=== PATIENT | female | born 1995 | race Caucasian/White ===

== ENCOUNTER → 2019-10-06 | Outpatient (REF) | payer MEDICAID, OTHER | LOC: M SFHCLERA 13:17 | PROVIDERS: ATTEND Nurse Practitioner Family | DX: N89.8 Other specified noninflammatory disorders of vagina (principal) ==

== ENCOUNTER → 2019-12-03 | Outpatient (REF) | payer OTHER ==
[~2019-12-03] MED LIST: KETO10TAB PO; MACR100C43 PO; ONDA4TAB6 PO
[2020-01-03 14:41] LABS: CHLAMYDIA DNA AMPLIFICATION POSITIVE (NEGATIVE); GC DNA AMPLIFICATION NEGATIVE (NEGATIVE)
== END ==
LOC: M LAB REF 13:10
PROVIDERS: ATTEND Physician Assistant
DX: N89.8 Other specified noninflammatory disorders of vagina (principal)

== ENCOUNTER 2019-12-11 14:12 | Emergency (ER) | payer MEDICAID, OTHER, SELFPAY ==
[~2019-12-11] VITALS: Ht 160 cm; Wt 61.5 kg
[2019-12-11] MEDS ORDERED: KETOROLAC 30 MG/ML 1ML VIAL IV ONE (16:00)
[2019-12-11 16:20] LABS: BASO % 0.1 % (0.0-1.0); EOS # 0.1 10^3/uL (0.0-0.5); EOS % 0.7 % (0.0-3.0); HEMATOCRIT 41.7 % (36.0-47.0); HEMOGLOBIN 14.6 g/dl (12.0-15.5); LYMPH # 1.6 10^3/uL (1.5-5.0); LYMPH % 18.7 % (24.0-44.0); MEAN CORPUSCULAR HEMOGLOBIN 32.5 pg (27.0-33.0); MEAN CORPUSCULAR VOLUME 92.9 fl (80.0-96.0); MONO # 0.7 10^3/uL (0.0-0.8); NEUTROPHILS # 6.2 10^3/uL (1.5-8.5); NEUTROPHILS % 72.2 % (36.0-66.0); PLATELET COUNT, AUTOMATED 291 10^3/uL (150-450); RED BLOOD COUNT 4.49 10^6/uL (4.00-5.40); WHITE BLOOD COUNT 8.6 10^3/uL (4.0-10.0)
[2019-12-11 16:43] LABS: BILIRUBIN,DIRECT 0.2 MG/DL (0.0-0.2); BILIRUBIN,TOTAL 0.8 MG/DL (0.2-1.0); TOTAL PROTEIN 7.4 GM/DL (6.4-8.2)
[2019-12-11] MEDS ORDERED: ONDANSETRON 4 MG ORAL DISINTEGRATING TAB PO ONE (19:00)
[2019-12-11] MEDS ORDERED: KETOROLAC TROMETHAMINE 10 MG TAB PO ONE (19:00)
[2019-12-11] MEDS ORDERED: MACR100C43 PO (19:04)
[2019-12-11] MEDS ORDERED: KETO10TAB PO (19:04)
[2019-12-11] MEDS ORDERED: ONDA4TAB6 PO (19:04)
[2019-12-11 19:15] VITALS: BP 104/68
[2019-12-11] MEDS ORDERED: NITROFURANTOIN (MACROBID) 100 MG CAP PO ONE (19:15)
--- NOTE | 2020-01-11 09:39 | REP ---
PELVIC SONOGRAPHY HISTORY: Right lower quadrant pain. History of ovarian cyst. FINDINGS: A retroverted normal size uterus is seen measuring 7.6 x 4.8 x 6.4 cm. Endometrial echo is 0.5 cm thick. No focal uterine mass is seen. There is a small quantity of hypoechoic fluid in the cul-de-sac visible on transvaginal images. Normal ovaries are seen. Right ovary measures 4.5 x 1.7 x 2.1 cm. Left ovary measures 3.2 x 1.8 x 4.1 cm. No ovarian mass or cyst is seen. Ovarian Doppler flow is present bilaterally. IMPRESSION: Small amount of hypoechoic fluid in the cul-de-sac. Otherwise, negative pelvic sonography. Retroverted uterus. MTDD
== END 2019-12-11 19:24 | disposition home or self-care (01) ==
LOC: M ED 14:12
DX: R10.9 Unspecified abdominal pain (principal); R31.9 Hematuria, unspecified; R82.71 Bacteriuria; J45.909 Unspecified asthma, uncomplicated; Z87.42 Personal history of other diseases of the female genital tract; Z88.8 Allergy status to other drugs, medicaments and biological substances
CPT/HCPCS: 36415; 76830; 76856; 80047; 80076; 81001; 83690; 84702; 85025; 87086; 93976; 96374; 99284; J1885; Q0162